=== PATIENT | male | born 1965 | race Two or more races ===

== ENCOUNTER 2023-11-16 10:40 | Outpatient (CLI) | payer OTHER | END 2023-11-16 15:04 | disposition home or self-care (01) | LOC: TOM 10:40 | PROVIDERS: ATTEND Internal Medicine | DX: I10 Essential (primary) hypertension (principal); Z01.810 Encounter for preprocedural cardiovascular examination; E03.9 Hypothyroidism, unspecified; E78.9 Disorder of lipoprotein metabolism, unspecified; E55.9 Vitamin D deficiency, unspecified; E66.8 Other obesity; E11.9 Type 2 diabetes mellitus without complications; Z12.11 Encounter for screening for malignant neoplasm of colon; N41.0 Acute prostatitis; N39.0 Urinary tract infection, site not specified; Z77.22 Contact with and (suspected) exposure to environmental tobacco smoke (acute) (chronic) ==